=== PATIENT | female | born 1965 | race Two or more races ===

== ENCOUNTER → 2024-06-02 | Outpatient (CLI) | payer OTHER, SELFPAY ==
--- NOTE | 2024-06-02 11:00 | XR_ITS ---
Examination: Breast ultrasound, unilateral, left complete Date and time of exam: June 02, 2024 at 1118 hours INDICATIONS: Left breast sonogram September 22, 2023 2:00 nodule 8 x 13 mm Technique: Real-time garcia scale ultrasonographic imaging performed left breast including all 4 quadrants as well as nipple retroareolar and axillary region. Findings: 12:00 nodule lobular margins 7 x 5 mm 12:00 nodule lobular margins 9 x 8 mm 2:00 nodule lobular margins 12 x 7 mm 11:00 nodule circumscribed 7 x 6 mm IMPRESSION: BI-RADS Category 3: Probably benign findings One additional 6 month left breast sonogram follow-up is needed to document stability of multiple solid nodules described above
== END | disposition home or self-care (01) ==
PROVIDERS: PCP Physician Assistant; Referring Provider Physician Assistant; Visit Provider Physician Assistant
DX: N63.25 Unspecified lump in the left breast, overlapping quadrants (principal); N63.22 Unspecified lump in the left breast, upper inner quadrant; N63.21 Unspecified lump in the left breast, upper outer quadrant
CPT/HCPCS: 76641

== ENCOUNTER → 2024-09-15 | Outpatient (CLI) | payer OTHER, SELFPAY ==
--- NOTE | 2024-09-15 15:30 | XR_ITS ---
Examination: Diagnostic digital mammography, unilateral, left Computer aided detection 3-D breast Tomosynthesis, unilateral Date and time of exam: September 15 thousand 25 1535 hours INDICATIONS: 2:00 nodule 14 mm on mammogram September 22, 2023 Technique: Nonmagnified MLO, CC views of the left breast have been obtained, reconstructed from 3-D Tomosynthesis images. R2 computer aided detection program utilized for evaluation of suspicious masses and/or abnormal calcifications. 3-D Tomosynthesis images obtained. Findings: The breast is heterogeneously dense, which may obscure small masses 12 mm nodule lower inner left breast posterior depth Impression: BI-RADS Category 0: Incomplete: Need additional imaging evaluation Recommend follow-up spot tomographic views of 12 mm nodule lower inner left breast
== END | disposition home or self-care (01) ==
LOC: CDIM 15:12
PROVIDERS: PCP Physician Assistant; Referring Provider Physician Assistant; Visit Provider Physician Assistant
DX: N63.24 Unspecified lump in the left breast, lower inner quadrant (principal)
CPT/HCPCS: 77061; 77065; G0279

== ENCOUNTER → 2024-12-28 | Outpatient (CLI) | payer OTHER, SELFPAY ==
--- NOTE | 2024-12-28 14:30 | XR_ITS ---
Examination: Breast ultrasound, unilateral, left complete Date and time of exam: December 28, 2024, 1419 hours INDICATIONS: Left breast sonogram June 02, 2024 12:00 nodule 7 mm 12:00 nodule 9 mm 2:00 nodule 12 mm 11:00 nodule 7 mm Technique: Real-time garcia scale ultrasonographic imaging performed left breast including all 4 quadrants as well as nipple retroareolar and axillary region. Findings: 12:00 nodule lobular margins 7 x 5 mm 12:00 nodule lobular margins 9 x 8 mm 2:00 solid nodule lobular margins 12 x 8 mm 11:00 nodule lobular margins 6 x 6 mm IMPRESSION: BI-RADS Category 3: Probably benign findings Recommend 1 additional 6-month left breast sonogram follow-up to document stability of multiple solid nodules described
--- NOTE | 2024-12-28 15:00 | XR_ITS ---
Examination: Diagnostic digital mammography, unilateral, left Computer aided detection 3-D breast Tomosynthesis, unilateral Date and time of exam: December 28, 2024, 1441 hours INDICATIONS: Mammogram September 15, 2024 12 mm nodule lower inner left breast posterior depth Technique: Nonmagnified MLO, CC views of the left breast have been obtained, reconstructed from 3-D Tomosynthesis images. R2 computer aided detection program utilized for evaluation of suspicious masses and/or abnormal calcifications. 3-D Tomosynthesis images obtained. Findings: The breast is heterogeneously dense, which may obscure small masses nodular density is confirmed on the spot compression views in the left breast posterior depth probably benign Impression: BI-RADS category 3: Probably benign findings Recommend 1 additional 6-month left mammogram follow-up Please see the left breast sonogram report today describing multiple nodules requiring 6-month follow-up left breast sonography
== END | disposition home or self-care (01) ==
LOC: CDIM 13:59
PROVIDERS: Referring Provider Physician Assistant; Visit Provider Physician Assistant
DX: N63.25 Unspecified lump in the left breast, overlapping quadrants (principal); N63.22 Unspecified lump in the left breast, upper inner quadrant; N63.21 Unspecified lump in the left breast, upper outer quadrant
CPT/HCPCS: 76641; 77061; 77065; G0279